=== PATIENT | female | born 1980 | race Caucasian/White ===

== ENCOUNTER 2016-09-25 14:59 | Emergency (ER) ==
[2016-09-25] MEDS ORDERED: ASPIRIN PO STA (15:16)
[2016-09-25 16:15] LABS: MANUAL DIFF NEEDED? NO
[2016-09-25 16:24] LABS: BASO% 0.4 % (0.0-0.8); EOS% 2.1 % (0.0-10.0); HEMATOCRIT 37.4 % (37.0-47.0); HEMOGLOBIN 12.4 g/dL (12.0-16.0); LYMPH# 1.82 X1000 (1.2-3.4); LYMPH% 38.3 % (20.5-51.1); MCH 27.9 PG (27-31); MCHC 33.2 g/dL (33-37); MONO% 12.6 % (1.7-9.3); MPV 12.1 FL (7.4-10.4); NEUT% 46.6 % (42.2-75.2); PLT 143 X1000 (130-400); RBC 4.45 XMIL (4.2-5.4)
[2016-09-25 16:34] LABS: INR 1.16 (0.86-1.15); PROTIME 15.1 Seconds (12.1-15.5)
[2016-09-25 16:35] LABS: PTT PL 38.6 Seconds (22.6-43.9)
[2016-09-25 16:39] LABS: AGAP 9; ALBUMIN 3.9 g/dL (3.5-5.0); ALKALINE PHOSPHATASE 107 U/L (32-104); BUN 11 mg/dL (8-22); CALCIUM 9.3 mg/dL (8.8-10.2); CHLORIDE 104 mmol/L (98-107); CK PROFILE 32 U/L (24-173); COSMO 272; GOT 31 U/L (10-30); GPT 16 U/L (10-36); MAGNESIUM 1.7 mg/dL (1.5-2.7); POTASSIUM 3.5 mmol/L (3.5-5.1); SODIUM 136 mmol/L (136-145); TCO2 23 mmol/L (25-35); TOTAL PROTEIN 7.3 g/dL (6.3-8.3)
--- NOTE | 2016-09-25 17:24 | EKG Report ---
Test Performed on : 09/25/2016 5:04:04 PM Test Reason : CHEST PAIN Blood Pressure : / mmHG Vent. Rate : 084 BPM Atrial Rate : 084 BPM P-R Int : 132 ms QRS Dur : 078 ms QT Int : 352 ms P-R-T Axes : 029 061 057 degrees QTc Int : 415 ms Normal sinus rhythm. Minimal voltage criteria for LVH, may be normal variant Borderline ECG No previous ECGs available Unconfirmed Result
--- NOTE | 2016-09-25 18:14 | ED EKG INTERP ---
EKG Interpretation - EKG Time of EKG reading by physician:: 17:04 EKG Read and Signed by:: Jose Dickson EKG Interpretation (*Must complete 3 of following elements*): Abnormal ( borderline) Rate: 84 Rhythm: NSR [place]: normal QRS: LVH (minimal voltage criteria for LVH, may be normal variant) MA Interval: normal Comments: borderline Attestation - Scribe Verification/Attestation Scribe:: Jamil Crabtree Acting as Scribe for:: Jose Dickson Scribe documention review:: This chart was documented by a scribe and accurately reflects the service the provider performed and the decisions made by the provider.
[2016-09-25] MEDS ORDERED: FLEXERIL PO ONE (18:29)
[2016-09-25] MEDS ORDERED: NAPROSYN PO ONE (18:29)
[2016-09-25] MEDS ORDERED: NORCO-5 PO ONE (18:30)
[2016-09-25] MEDS ORDERED: NAPROSYN ONE (18:35)
--- NOTE | 2016-09-25 18:38 | PROVIDER DOCUMENTATION ---
HPI-Musculoskeletal Pain/Inj - GENERAL Chief Complaint: Back Pain Stated Complaint: RODOLFOCK PAIN Time Seen by Provider: 09/25/16 17:09 Source: patient - HX OF PRESENT ILLNESS-MUSKULOSKELTAL Nature of Presenting Problem: 36 yo F presents to the ER with complaint of pain between her shoulder blades x 5 days. Pt denies any injury to this area. Pt states the pain is achy and is better with rest. She has tried taking aleeve with minimal relief. Pt also states it sometimes radiates to her chest. Quality of Pain: reports: aching Severity in ED: mild Onset/Duration: 5 days ago Timing: still present Modifying Factors: improves with: rest Any recent injury?: No - BACK & NECK PAIN/INJURY Back/Neck Pain Location: reports: other (b/w shoulder blades) Back/Neck Pain Radiation: reports: Other (sometimes to chest) Review of Systems - Adult - REVIEW OF SYSTEMS - ADULT Constitutional: denies: chills, fever Eyes: reports: no symptoms reported Ears, Nose, Mouth & Throat: reports: no symptoms reported Cardiovascular: denies: chest pain, palpitations Respiratory: reports: no symptoms reported Gastrointestinal: denies: abdominal pain, nausea, vomiting Genitourinary: reports: no symptoms reported Musculoskeletal: reports: back pain. denies: neck pain Integumentary: reports: no symptoms reported Neurological: reports: no symptoms reported Psychiatric: reports: no symptoms reported Endocrine: reports: no symptoms reported Hematologic/Lymphatic: reports: no symptoms reported Allergic/Immunologic: reports: no symptoms reported All Other Systems: Reviewed and Negative Past History - Adult - PAST MEDICAL HISTORY-ADULT Review of Records: reports: Old Records Reviewed, Nursing Assessment Review, Medications Reviewed - IMMUNIZATION STATUS Childhood Immunizations: See Nurse Assessment Flu Vaccine: See Nurse Assessment Physical Exam-Injury Related - Physical Exam-Injury Related Initial Vital Signs Reviewed: Yes General Appearance: appears well, alert, no apparent distress Head, Ears, Nose, Mouth & Throat: normocephalic/atraumatic, moist mucous membranes Neck: full range of motion, supple Respiratory: chest non-tender, lungs clear Abdominal Exam: non tender, soft Back Exam: vertebral tenderness (tender between shoulder blades) Extremity: normal range of motion, non-tender Integumentary: normal color, warm/dry Progress - PLAN OF CARE/RESULTS Progress/Plan/Lab Results: Laboratory Tests 09/25/16 09/25/16 09/25/16 16:04 16:04 16:04 WBC RBC Hgb Hct MCV MCH MCHC RDW Std Deviation Plt Count MPV Immature Gran % (Auto) Neut % (Auto) Lymph % (Auto) Gregg % (Auto) Eos % (Auto) Baso % (Auto) Immature Gran # (Auto) Neut # (Auto) Lymph # (Auto) [place]gg # (Auto) Eos # (Auto) Baso # (Auto) PT INR APTT (Factor Assay) D-Dimer Sodium 136 Potassium 3.5 Chloride 104 Carbon Dioxide 23 L Anion Gap 9 BUN 11 Creatinine 0.4 L Estimated GFR/1.73 m2 > 60 BUN/Creatinine Ratio 28 Glucose 109 H Calculated Osmolality 272 Calcium 9.3 Magnesium 1.7 Total Bilirubin 0.50 AST 31 H ALT 16 Alkaline Phosphatase 107 H Creatine Kinase 32 Troponin T < 0.010 Vub-Z-Vnmfdwjobvh Pept 707 H Total Protein 7.3 Albumin 3.9 Globulin 3.0 Albumin/Globulin Ratio 1.0 09/25/16 09/25/16 16:04 16:04 WBC 4.75 L RBC 4.45 Hgb 12.4 Hct 37.4 MCV 84.0 MCH 27.9 MCHC 33.2 RDW Std Deviation 13.5 Plt Count 143 MPV 12.1 H Immature Gran % (Auto) 0.0 Neut % (Auto) 46.6 Lymph % (Auto) 38.3 Gregg % (Auto) 12.6 H Eos % (Auto) 2.1 Baso % (Auto) 0.4 Immature Gran # (Auto) 0.00 Neut # (Auto) 2.21 Lymph # (Auto) 1.82 Gregg # (Auto) 0.60 H Eos # (Auto) 0.10 Baso # (Auto) 0.02 PT 15.1 INR 1.16 H APTT (Factor Assay) 38.6 D-Dimer 1.03 H Sodium Potassium Chloride Carbon Dioxide Anion Gap BUN Creatinine Estimated GFR/1.73 m2 BUN/Creatinine Ratio Glucose Calculated Osmolality Calcium Magnesium Total Bilirubin AST ALT Alkaline Phosphatase Creatine Kinase Troponin T Hai-V-Lyctgbsoycq Pept Total Protein Albumin Globulin Albumin/Globulin Ratio Orders Category Date Time Status Cardiac Monitoring DIRECTED Care 09/25/16 15:16 Active CHEST-2 VIEWS [RAD] Stat Exams 09/25/16 15:16 Taken CBC WITH ELECTRONIC DIFF [HEME] Stat Lab 09/25/16 16:04 Completed CK PROFILE [SP CHEM] Stat Lab 09/25/16 16:04 Completed COMPREHENSIVE METABOLIC PANEL [CHEM] Stat Lab 09/25/16 16:[address] D-DIMER PL [COAG] Stat Lab 09/25/16 16:04 Completed MAGNESIUM [CHEM] Stat Lab 09/25/16 16:04 Completed PRO B-NATRIURETIC PEPTIDE Stat Lab 09/25/16 16:04 Completed PROTIME WITH INR PL [COAG] Stat Lab 09/25/16 16:[address] [COAG] Stat Lab 09/25/16 16:04 Completed TROPONIN T Stat Lab 09/25/16 16:04 Completed Aspirin Med 09/25/16 15:16 Discontinued 325 mg PO STAT STA Cyclobenzaprine [Flexeril] Med 09/25/16 18:29 Discontinued 10 mg PO NOW ONE Hydrocodone/APAP 5 mg/325 mg [Mccool-5] Med 09/25/16 18:30 Discontinued 1 each PO NOW ONE Naproxen [Naprosyn] Med 09/25/16 18:35 Discontinued 500 mg .ROUTE .STK-MED ONE Naproxen [Naprosyn] Med 09/25/16 18:29 Discontinued 500 mg PO NOW ONE EKG [EKG] Stat Ther 09/25/16 15:16 Draft Vital Signs Temp Pulse Resp BP Pulse Ox 09/25/16 15:13 97.9 F 115 H 20 151/84 96 No Known Allergies Allergy (Verified 09/25/16 15:15) Cyclobenzaprine [Flexeril] 10 mg PO TID PRN #20 tablet 09/25/16 Hydrocodone/Acetaminophen [Mccool 5-325 Tablet] 1 each PO Q4-6H PRN PRN #20 tablet 09/25/16 Naproxen [Naprosyn] 500 mg PO BID #20 tablet 09/25/16 Laboratory 09/25/16 09/25/16 09/25/16 16:04 16:04 16:04 WBC 4.75 L RBC 4.45 Hgb 12.4 Hct 37.4 MCV 84.0 MCH 27.9 MCHC 33.2 RDW Std Deviation 13.5 Plt Count 143 MPV 12.1 H Immature Gran % (Auto) 0.0 Neut % (Auto) 46.6 Lymph % (Auto) 38.3 Gregg % (Auto) 12.6 H Eos % (Auto) 2.1 Baso % (Auto) 0.4 Immature Gran # (Auto) 0.00 Neut # (Auto) 2.21 Lymph # (Auto) 1.82 Gregg # (Auto) 0.60 H Eos # (Auto) 0.10 Baso # (Auto) 0.02 PT 15.1 INR 1.16 H APTT (Factor Assay) 38.6 D-Dimer 1.03 H Sodium Potassium Chloride Carbon Dioxide Anion Gap BUN Creatinine Estimated GFR/1.73 m2 BUN/Creatinine Ratio Glucose Calculated Osmolality Calcium Magnesium Total Bilirubin AST ALT Alkaline Phosphatase Creatine Kinase Troponin T Wnt-L-Nbxrwldsprq Pept 707 H Total Protein Albumin Globulin Albumin/Globulin Ratio 09/25/16 09/25/16 16:04 16:04 WBC RBC Hgb Hct MCV MCH MCHC RDW Std Deviation Plt Count MPV Immature Gran % (Auto) Neut % (Auto) Lymph % (Auto) [place] % (Auto) Eos % (Auto) Baso % (Auto) Immature Gran # (Auto) Neut # (Auto) Lymph # (Auto) [place] # (Auto) Eos # (Auto) Baso # (Auto) PT INR APTT (Factor Assay) D-Dimer Sodium 136 Potassium 3.5 Chloride 104 Carbon Dioxide 23 L Anion Gap 9 BUN 11 Creatinine 0.4 L Estimated GFR/1.73 m2 > 60 BUN/Creatinine Ratio 28 Glucose 109 H Calculated Osmolality 272 Calcium 9.3 Magnesium 1.7 Total Bilirubin 0.50 AST 31 H ALT 16 Alkaline Phosphatase 107 H Creatine Kinase 32 Troponin T < 0.010 Qdd-L-Eljsnchwyve Pept Total Protein 7.3 Albumin 3.9 Globulin 3.0 Albumin/Globulin Ratio 1.0 Departure - Departure Time of Disposition Order: 18:37 DIAGNOSIS: Sprain of thoracic spine Qualifiers: Encounter type: initial encounter Qualified Code(s): S23.9XXA - Sprain of unspecified parts of thorax, initial encounter Disposition: HOME 01 Certified Medical Emergency: Emergent Condition: Good Additional Instructions: ED Follow Up Instructions: You have been treated by a care provider in the Emergency Department. These instructions are being provided to you so you can have an understanding of how to care for yourself upon discharge. Upon discharge from the Emergency Department, you are responsible for making arrangements for follow-up care by a physician of your choice. Take all prescribed medications as directed. Return to the Emergency Department immediately for any new or worsening symptoms. You may call the Physician Referral phone number at [phone] to obtain a list of Physicians who are taking new patients. Prescriptions: Cyclobenzaprine [Flexeril] 10 mg PO TID PRN #20 tablet PRN Reason: Spasms Naproxen [Naprosyn] 500 mg PO BID #20 tablet Hydrocodone/Acetaminophen [Mccool 5-325 Tablet] 1 each PO Q4-6H PRN PRN #20 tablet PRN Reason: Pain Referrals: Irineo Castro DO [STAFF PHYSICIAN] - None,PCP [Primary Care Provider] - Zackery Bynum MD [STAFF PHYSICIAN] - Forms: Return to School/Parent Work Instructions: Acetaminophen; Hydrocodone tablets or capsules, Naproxen; Sumatriptan tablets, Cyclobenzaprine tablets, Strain-SportsMed, Back Pain, Adult Attestation - Scribe Verification/Attestation Scribe:: Jamil Crabtree Acting as Scribe for:: Joey Winkler Scribe documention review:: This chart was documented by a scribe and accurately reflects the service the provider performed and the decisions made by the provider.
[2016-09-25 18:46] VITALS: BP 147/084
--- NOTE | 2016-09-25 22:06 | Diag Imaging Result Document ---
PROCEDURE NAME: CHEST-2 VIEWS - 09/25/2016 PA AND LATERAL RADIOGRAPH OF THE CHEST: COMPARISON: None available. FINDINGS: There are calcified granulomata in the right upper lung zone and at the right lung base. The lungs are clear otherwise. There is no definite pleural fluid collection. There are calcified right hilar lymph nodes indicating prior granulomatous disease. Cardiac silhouette and central vasculature are grossly unremarkable. IMPRESSION: No evidence of acute pathology.
== END 2016-09-25 18:46 | disposition home or self-care (01) ==
LOC: P.ED 14:59
DX: S23.9XXA Sprain of unspecified parts of thorax, initial encounter (principal); R94.31 Abnormal electrocardiogram [ECG] [EKG]; M54.6 Pain in thoracic spine; R07.9 Chest pain, unspecified
CPT/HCPCS: 71020; 80053; 82550; 83735; 83880; 84484; 85025; 85379; 85610; 85730; 93005; 99284

== ENCOUNTER 2016-12-01 12:26 | Emergency (ER) ==
[2016-12-01 13:28] LABS: URINE CULTURE PL NEEDED? NO; URINE SOURCE CLEAN CATCH
--- NOTE | 2016-12-01 13:40 | PROVIDER DOCUMENTATION ---
HPI-Female /OB/Breast - General Chief Complaint: Female Stated Complaint: STD TESTING Time Seen by Provider: 12/01/16 13:12 Source: reports: patient Allergies/Adverse Reactions: Patient Allergies Allergy/AdvReac Type Severity Reaction Status Date / Time No Known Allergies Allergy Verified 09/25/16 15:15 Home Medications: Home Medication List Medication Instructions Recorded Confirmed Last Taken Type No Home Medications 12/01/16 12/01/16 Unknown History - History of Present Illness-Female /OB Nature of Presenting Problem: 36 y/o AAF c/o STD exposure to gonorrhea by her boyfriend. Last episode of unprotected sex was about 3 weeks ago, LMP was 3 days ago. Denies vaginal discharge, vaginal discomfort, abnormal bleeding or pelvic pain/ dysparunia. Review of Systems - Adult - REVIEW OF SYSTEMS - ADULT Constitutional: reports: no symptoms reported. denies: chills, fever, fatique Eyes: reports: no symptoms reported. denies: decreased vision, blurred vision, double vision, eye pain Ears, Nose, Mouth & Throat: reports: no symptoms reported. denies: ear pain, nose pain, throat pain Cardiovascular: reports: no symptoms reported. denies: chest pain, palpitations Respiratory: reports: no symptoms reported. denies: cough, shortness of breath Gastrointestinal: reports: no symptoms reported. denies: abdominal pain, diarrhea, nausea, vomiting Genitourinary: reports: no symptoms reported. denies: dysuria, discharge, frequency, incontinence Musculoskeletal: reports: no symptoms reported. denies: bone pain, back pain, muscle aches Integumentary: reports: no symptoms reported. denies: rash Neurological: reports: no symptoms reported. denies: headache/migraines Psychiatric: reports: no symptoms reported Endocrine: reports: no symptoms reported Hematologic/Lymphatic: reports: no symptoms reported Allergic/Immunologic: reports: no symptoms reported All Other Systems: Reviewed and Negative Past History - Adult - PAST MEDICAL HISTORY-ADULT Review of Records: reports: Old Records Reviewed, Nursing Assessment Review, Medications Reviewed, Social history reviewed & non-contributory. Major Childhood Illnesses: reports: denies history Cardiovascular: reports: denies history Respiratory: reports: denies history Gastrointestinal: reports: denies history Obstetrical/Gynecological: reports: denies history Genitourinary: reports: denies history Musculoskeletal: reports: denies history Neurological: reports: denies history Endocrine/Immune: reports: denies history Other Conditions: reports: denies history - IMMUNIZATION STATUS Childhood Immunizations: See Nurse Assessment Flu Vaccine: See Nurse Assessment - FAMILY HISTORY Family History: reviewed, not pertinent Physical Exam-General - PHYSICAL EXAM-ADULT Initial Vital Signs Reviewed: Yes - CONSTITUTIONAL General Appearance: appears well, alert, no apparent distress - EYES Eyes: PERRL/EOMI, pink conjunctivae - HEAD, EARS, NOSE, MOUTH & THROAT HENMT: normocephalic/atraumatic, moist mucous membranes - NECK Neck: non-tender, full range of motion, supple, normal inspection - RESPIRATORY Respiratory: chest non-tender, lungs clear, normal breath sounds, no pleuratic chest pain, no respiratory distress, no accessory muscle use. negative: respiratory distress, decreased breath sounds, accessory muscle use, crackles, rales, rhonchi, wheezing - CARDIOVASCULAR Cardiovascular: normal peripheral pulses, regular rate, rhythm - GASTROINTESTINAL (ABDOMEN) Abdominal Exam: normal bowel sounds, non tender, soft, no organomegaly, no pulsatile mass. negative: abdominal bruit, abnormal bowel sounds, distended, guarding, rigid, rebound, tenderness - GENITOURINARY Female Genitalia/Pelvic Exam: external exam normal, speculum exam normal, bimanual exam normal, no cerv. motion tender, no masses. negative: active bleeding, blood, cervicitis, discharge, herpes-like ulcerations, lesions, mass, tender w/ cervical motion - MUSCULOSKELETAL Extremity: normal gait - SKIN Integumentary: normal color, normal turgor, warm/dry - NEUROLOGIC Neurologic: grossly normal, no motor/sensory deficits - PSYCHIATRIC Psych/Mental Status: normal mood/affect, normal thought content, normal thought process, oriented x 3 Progress - PLAN OF CARE/RESULTS Progress/Plan/Lab Results: Vital Signs Temp Pulse Resp BP Pulse Ox 12/01/16 12:28 98 F 94 H 18 155/78 99 No Known Allergies Allergy (Verified 09/25/16 15:15) No Home Medications 12/01/16 Laboratory 12/01/16 13:10 Urine Source CLEAN CATCH Urine Color YELLOW Urine Clarity CLEAR Urine pH 5.0 Ur Specific [place] 1.020 Urine Protein TRACE A Urine Ketones NEGATIVE Urine Blood 1+ A Urine Nitrite NEGATIVE Urine Bilirubin NEGATIVE Urine Urobilinogen NORMAL Urine Microscopic RBC <10 Urine WBC 1+ A Urine Microscopic WBC 10-20 A Ur Epithelial Cells >10 A Urine Glucose NEGATIVE Orders Category Date Time Status Pelvic set up DIRECTED Care 12/01/16 13:12 Active Urine Preg [ED: Urine Bedside] ORDERED Care 12/01/16 13:08 Active CHLAMYDIA AND GC BY PCR URINE [ROSLINDALE] Stat Lab 12/01/16 13:27 Received GRAM STAIN AND WET PREP [DIREX] Stat Lab 12/01/16 13:[address] W/POSS RFLX CULT [URINALYSIS] Stat Lab 12/01/16 13:10 Completed Azithromycin [Zithromax] Med 12/01/16 13:46 Discontinued 1,000 mg PO NOW ONE CefTRIAXONE [Rocephin] Med 12/01/16 13:46 Discontinued 250 mg IM NOW ONE Lidocaine 1% Pf [Xylocaine-Mpf 1%] Med 12/01/16 13:46 Discontinued 5 ml INJ NOW ONE Metronidazole [Flagyl] Med 12/01/16 13:50 Discontinued 2,000 mg .ROUTE .STK-MED ONE Metronidazole [Flagyl] Med 12/01/16 13:46 Discontinued 2,000 mg PO NOW ONE Departure - Departure Time of Disposition Order: 13:51 DIAGNOSIS: Exposure to STD, Normal pelvic exam Disposition: HOME 01 Certified Medical Emergency: Emergent Condition: Stable Additional Instructions: Follow up with your [facility] Follow Up Instructions: You have been treated by a care provider in the Emergency Department. These instructions are being provided to you so you can have an understanding of how to care for yourself upon discharge. Upon discharge from the Emergency Department, you are responsible for making arrangements for follow-up care by a physician of your choice. Take all prescribed medications as directed. Return to the Emergency Department immediately for any new or worsening symptoms. You may call the Physician Referral phone number at [phone] to obtain a list of Physicians who are taking new patients. Attestation - Physician/ RYLIE Attestation Patient care was provided by Advanced Practice Provider:: Yes Advanced Practice Provider:: Marley Malin Advanced Practice Provider documentation review:: The Mid-level provider documentation, treatment plan and medical decision making was reviewed by the physician who agrees with all treatment and medical decision making by the MLP.
[2016-12-01 13:43] LABS: BILIRUBIN URINE NEGATIVE (NEGATIVE); BLOOD URINE 1+ (NEGATIVE); CLARITY CLEAR (CLEAR); COLOR YELLOW; GLUCOSE URINE NEGATIVE (NEGATIVE); LEUKOCYTES URINE 1+ (NEGATIVE); NITRITE URINE NEGATIVE (NEGATIVE); PROTEIN URINE TRACE mg/dL (NEGATIVE); UROBILINOGEN URINE NORMAL
[2016-12-01 13:46] LABS: URINE EPITHELIAL CELLS >10 /HPF (<10); URINE RBC <10 /HPF (<10)
[2016-12-01] MEDS ORDERED: ROCEPHIN IM ONE (13:46)
[2016-12-01] MEDS ORDERED: ZITHROMAX PO ONE (13:46)
[2016-12-01] MEDS ORDERED: XYLOCAINE-MPF 1% INJ ONE (13:46)
[2016-12-01] MEDS ORDERED: FLAGYL PO ONE (13:46)
[2016-12-01] MEDS ORDERED: FLAGYL ONE (13:50)
[2016-12-01 14:09] VITALS: BP 139/86
== END 2016-12-01 14:15 | disposition home or self-care (01) ==
LOC: P.ED 12:26
DX: Z20.2 Contact with and (suspected) exposure to infections with a predominantly sexual mode of transmission (principal)
CPT/HCPCS: 81001; 81025; 87205; 87210; 87491; 87591; 96372; J0696